=== PATIENT | male | born 1995 ===

== ENCOUNTER 2023-10-28 14:47 | Outpatient (REF) | payer MEDICARE, SELFPAY ==
--- OUTSIDE RECORDS SUMMARY | 2023-10-28 14:55 | XMS_ITS ---
Author Name Unknown Address [address] [place] [phone] Phone Organization Unknown Address [address] [place] [address] [phone] Phone Care Team Providers Care Customer Experience Analyst Name Role Phone GUI [place] Attending Unavailable Results [facility] - Lesley ect Date/Time: 05/04/2021 15:54 [facility] ID: [id number] [address], [place], [id number] LOINC: 09846-5 Test Value Unit Reference Range Code Code System Flag Tier- STAFF FAMILY SARS COV2 RNA: POSITIVE REFERENCE RAN GE: NEGAT 85912-1 LOINC A Social History Type Status Start Date End Date Code Code Syst em Smoking History Former smoker [id number] SNOMED CT Sex Male Hospital Discharge Instructions Should you have any questions prior to discharge, please contact a member of your healthcare team. If you have left the hospital and have any questions, please contact your primary care physician. Reason For Referral No Data Found Allergies and Adverse Reactions Allergy Substance Reaction Severity Start Date Concern Status Co de Code System PENICILLINS (CLASS) Moderate Active Plan of Treatment No Data Found Encounters Encounter Diagnosis Start Date Code Code Sys tem COVID-19 05/04/2021 [id number] SNOMED-CT Personal Care Team Section Performer Name Performer Role Active Date Inactive Da te
[2023-10-31 14:50] LABS: HSV 1 DNA Result Negative (Negative); HSV 2 DNA Result Negative (Negative)
[2023-11-02 15:13] LABS: Syphilis Serology (RPR) Negative (Negative)
== END 2023-10-28 14:48 | disposition home or self-care (01) ==
LOC: NCHCN 14:47
PROVIDERS: PCP Family Medicine; Visit Provider Physician Assistant
DX: N50.89 Other specified disorders of the male genital organs (principal); Z11.3 Encounter for screening for infections with a predominantly sexual mode of transmission; Z11.59 Encounter for screening for other viral diseases
CPT/HCPCS: 87529; 86592